=== PATIENT | female | born 1985 | race Caucasian/White ===

== ENCOUNTER 2024-07-13 09:21 | Inpatient (IN) ==
--- NOTE | 2024-07-13 09:46 | Emergency Department Note ---
Impression & Plan Renal colic, Hydronephrosis, Vomiting, Failure of outpatient treatment ED Provider Note NAME: LISA GARCIA AGE: 38 SEX: F : 1985 ARRIVES VIA: Walk-In INFORMANT: [Patient] ED PROVIDER(S): [Zac Blevins MD] CHIEF COMPLAINT: Kidney pain HISTORY OF PRESENT ILLNESS: The patient is a 38-year-old female who was seen about a week ago in this ED and diagnosed with a proximal left 5 mm ureteral stone. She was discharged on pain and nausea medication. She was discharged with Flomax. She has been straining her urine. The patient states that she has had intermittent discomfort but in the last 24 hours, the pain has been worse in the area of the left flank. She also had some vomiting despite her nausea medications and, she had a fever last night. There has been no cough or cold or respiratory complaint. No urinary burning or urgency. In short, she presents back as she is worsening. PMHx/PSHx/Social Hx: See Below PHYSICAL EXAM: GENERAL: Patient is in no acute distress. HEENT: No acute trauma, normocephalic atraumatic, mucous membranes moist, no nasal congestion. NECK: No stridor, no adenopathy, no meningismus, trachea is midline. LUNGS: Clear to auscultation bilaterally, no wheeze, no rhonchi, breath sounds equal. HEART: Without murmurs gallops or rubs, regular rate and rhythm. ABDOMEN: Soft, very mild left abdominal discomfort with palpation. No distention. EXTREMITIES: No cyanosis, full range of motion of all the joints without pain or difficulty. NEUROLOGIC: Oriented x 3, no acute motor or sensory deficits, no focal weakness. SKIN: No jaundice, no diaphoresis. Back: Left flank discomfort to percussion. DIFFERENTIAL DIAGNOSIS: Renal colic, hydronephrosis, UTI, pyelonephritis, renal failure, among others. EMERGENCY DEPARTMENT PROCEDURES: MEDICAL DECISION MAKING: There is no leukocytosis or concerning anemia. There is a normal platelet count. No renal failure or significant electrolyte abnormality. No concerning liver enzyme elevation. No evidence for pancreatitis. testing was negative. Urinalysis shows some findings consistent with the ureteral stone, no hard evidence for infection. KUB shows a potential left ureteral stone consistent with the findings from the previous CT scan. On exam, the patient was not febrile or toxic. Patient was given IV saline, IV Zofran, IV Toradol, she received IV ceftriaxone as antibiotic coverage. The patient has failed outpatient management for her ureteral stone. Despite her medications, she has uncontrolled pain, she is vomiting. She did report a fever in the last 24 hours. I did speak with urology. The patient will be hospitalized for potential urologic intervention. I spoke at length with the patient. The on-call hospitalist was consulted. Case management has been involved. Prior/Outside records/notes reviewed: Previous ED visit note from a week ago describing her presentation, findings and outpatient plan. Imaging/x-ray results per my interpretation: KUB shows a potential left ureteral stone. Chronic Medical/Social conditions affecting care: None Care/Management discussed with: Urology-Dr. Calabrese. Case management and the on-call hospitalist. Level of care consideration(s): After review of the information above and other included data: --I believe the patient requires escalation of care to admission DISPOSITION: Admission Past Med/Surg History Problem List (Updated 07/13/24 @ 15:39 by Zac Blevins MD) Failure of outpatient treatment (Acute) Vomiting (Acute) Hydronephrosis (Acute) Renal colic (Acute) Calculus of proximal left ureter Kidney stone Vomiting (Acute) Hydronephrosis (Acute) Hematuria (Acute) Renal colic (Acute) Acute left flank pain (Acute) Morbid (severe) obesity due to excess calories Healthcare maintenance Hypertension Bariatric surgery status CLAUDIA Bo November 2023 No significant past surgical history No significant medical problems Medical History Diabetes Social History Smoking Status: Never smoker Preferred Language: Frisian Communication Ability: Effective Visual Impairment: No Limitations Hearing Ability: Normal marital status: Current Living Situation: Spouse Feels Safe at Home: Yes Allergies Allergies Allergy/AdvReac Type Severity Reaction Status Date / Time morphine Allergy Mild Unknown Verified 07/13/24 11:26 clindamycin Allergy Unknown HIVES, RASH Unverified 05/22/24 14:35 Macrolide Antibiotics Allergy Unknown ALLERGY: Verified 05/22/24 14:35 "MYCINS" tetracycline Allergy Unknown Unknown Verified 07/13/24 11:26 vancomycin AdvReac Mild FACE & Verified 05/22/24 14:35 SCALP RED & ITCHING Home Meds Home Medications Medication Instructions Recorded Confirmed biotin 1,000 mcg chewable tablet 1,000 mcg PO DAILY 05/22/24 07/13/24 calcium carbonate (Calcium 500) 500 mg PO DAILY 05/22/24 07/13/24 cholecalciferol (vitamin D3) 25 25 mcg PO DAILY 05/22/24 07/13/24 mcg (1,000 unit) capsule lisinopril 10 mg tablet 10 mg PO DAILY 05/22/24 07/13/24 multivitamin (Multiple Vitamins 1 tab PO DAILY 05/22/24 07/13/24 tablet) vitamin A 2,400 mcg capsule 2,400 mcg PO DAILY 05/22/24 07/13/24 Previous Rx's Medication Instructions Recorded ondansetron 4 mg disintegrating 4 - 8 mg (1 - 2 x 4 mg) PO Q6H PRN 07/06/24 tablet nausea and vomiting #14 tabs oxycodone 5 mg tablet 5 mg PO Q6 PRN pain #12 tabs 07/06/24 tamsulosin 0.4 mg capsule (Flomax) 0.4 mg PO DAILY #10 caps 07/06/24 Results & Data (ED) Vital Signs Vital Signs - 24 hr 07/13/24 09:26 07/13/24 11:09 Temperature 36.2 C L Temperature Source Temporal Artery Scan Pulse Rate 70 Pulse Rate [Right Finger] 60 Pulse Rhythm [Right Finger] Regular Pulse Strength [Right Finger] Normal Respiratory Rate 20 16 Respiratory Effort / Characteristics Non-Labored Spontaneous Non-Labored Spontaneous Respiratory Depth Normal Normal Respiratory Pattern Regular Blood Pressure 141/86 H Blood Pressure [Left Arm] 132/68 Blood Pressure Mean 104 Blood Pressure Mean [Left Arm] 89 Blood Pressure Position [Left Arm] Sitting Pulse Oximetry 98 99 Oxygen Delivery Method Room Air Room Air Sepsis Recent Fever Within 48 Hours No Sepsis New/Unexplained Change in Mental Status N/A Sepsis Action Taken by Nursing No Action Required Home Medications Current Medication List: was personally reviewed by me Laboratory Data Attestation: I reviewed the patient's lab results. 07/13/24 09:59 07/13/24 09:59 Lab Results 07/13/24 Range/Units 09:59 WBC 10.00 (4.8-10.8) K/ul RBC 4.75 (4.20-5.40) M/uL Hgb 14.4 (12.0-16.0) g/dl Hct 43.7 (37.0-47.0) % MCV 92.0 (80.0-100.0) fL MCH 30.3 (25.0-34.0) pg MCHC 33.0 (32.0-36.0) g/dL RDW Std Deviation 43.4 (36.4-46.3) fL RDW Coeff of Mindy 12.9 (11.5-14.5) % Plt Count 174 (130-400) K/uL MPV 12.3 (9.4-12.4) fL Immature Gran % (Auto) 0.4 % Neut % (Auto) 76.6 % Lymph % (Auto) 15.6 % Hand % (Auto) 6.8 % Eos % (Auto) 0.2 % Baso % (Auto) 0.4 % Neut # (Auto) 7.66 H (1.40-6.50) K/uL Lymph # (Auto) 1.56 (1.20-3.40) K/uL Hand # (Auto) 0.68 H (0.11-0.59) K/uL Eos # (Auto) 0.02 (0.00-0.50) K/uL Baso # (Auto) 0.04 (0.00-0.20) K/uL Immature Gran # (Auto) 0.04 (0.01-0.20) K/uL Sodium 140 (136-145) mmol/L Potassium 3.6 (3.5-5.1) mmol/L Chloride 105 (98-107) mmol/L Carbon Dioxide 28 (21-32) mmol/L Anion Gap 7 (3-11) BUN 14 (6-23) mg/dl Creatinine 0.86 (0.6-1.2) mg/dl Est Cr Clr Drug Dosing 129.8 ml/min eGFR 89.73 BUN/Creatinine Ratio 16.3 (10-20) Glucose 95 (70-99(Fasting)) mg/dl Calcium 9.4 (8.6-10.3) mg/dl Total Bilirubin 0.6 (0.2-1.0) mg/dl AST 20 (13-39) U/L ALT 19 (7-52) U/L Alkaline Phosphatase 108 H (34-104) U/L Total Protein 7.8 (6.0-8.3) gm/dl Albumin 4.4 (3.4-5.0) gm/dl Globulin 3.4 (2.5-4.0) gm/dl Albumin/Globulin Ratio 1.3 (0.9-2) Lipase 24 (11-82) U/L HCG, Qual Negative (Negative) Urine Color Yellow Urine Appearance Clear (Clear) Urine pH 5.5 (4.5-7.5) Ur Specific Ramah 1.012 (1.000-1.030) Urine Protein 1+ H (Negative) Urine Glucose (UA) Negative (Negative) Urine Ketones Trace H (Negative) Urine Blood 3+ H (Negative) Urine Nitrite Negative (Negative) Urine Bilirubin Negative (Negative) Urine Urobilinogen Negative (Negative) Ur Leukocyte Esterase Trace H (Negative) Urine WBC (Auto) 11-20 H (0-5) /hpf Urine RBC (Auto) >20 H (0-2) /hpf U Hyaline Cast (Auto) 0-2 (0-2) /lpf U Epithel Cells (Auto) 3-5 H (0-2) /hpf Urine Bacteria (Auto) None Seen (None Seen) Administered Medications Sodium Chloride (Nss) 1,000 mls @ 100 mls/hr IV .Q10H STA Stop: 07/13/24 21:38 Last Admin: 07/13/24 14:37 Dose: 100 mls/hr Documented By: [facility] [place]continued Medications Sodium Chloride (Nss) 1,000 mls @ 999 mls/hr IV .Q1H1M STA Stop: 07/13/24 10:29 Last Infusion: 07/13/24 14:40 Dose: Infused Documented By: [facility] [place] Admin: 07/13/24 09:57 Dose: 999 mls/hr Documented By: [facility] [place] Ceftriaxone Sodium (Rocephin) 2,000 mg in 50 mls @ 100 mls/hr IV NOW STA Stop: 07/13/24 11:01 Last Infusion: 07/13/24 11:45 Dose: Infused Documented By: [facility] [place] Admin: 07/13/24 11:13 Dose: 100 mls/hr Documented By: [facility] [place] Ketorolac Tromethamine (Ketorolac Tromethamine 15 Mg/Ml Vial) 10 mg IV NOW STA Stop: 07/13/24 09:30 Last Admin: 07/13/24 09:57 Dose: 10 mg Documented By: [facility] [place] Ondansetron HCl (Ondansetron Inj 2 Mg/Ml 2 Ml Vial) 4 mg IV NOW STA Stop: 07/13/24 09:30 Last Admin: 07/13/24 09:57 Dose: 4 mg Documented By: [facility] [place] Imaging Data Radiologist's Impression: KUB X-Ray 07/13/24 09:30 XR KUB/Abdomen 1 view CLINICAL HISTORY: k stone left TECHNIQUE: 1 view of the abdomen was obtained. Comparison: Comparison is made to CT abdomen pelvis 07/06/2024 FINDINGS: Questionable left ureteral calcific density with previously noted phleboliths. The osseous structures are grossly unremarkable. The bowel gas pattern is nonobstructive. A moderate amount of stool is noted within the large bowel. IMPRESSION: Questionable density in the left proximal ureter which may correspond to previously noted left ureteral stone. Of note, CT renal stone protocol is a more sensitive study. ACT 112: Negative or not required by law. Electronically signed by: Aaron Malik M.D. 07/13/2024 10:14 AM Discharge Plan Visit Data Chief Complaint: Kidney Stone Stated Complaint: KIDNEY STONE, NAUSEA/VOMITING, FEVER ED Provider: Zac Blevins Discharge Problem: Renal colic, Hydronephrosis, Vomiting, Failure of outpatient treatment Patient Disposition: Admitted As Inpatient Condition: Fair Discharge Instructions Interventions: ED Discharge Assessment Last Done: 07/13/24 14:04 Discharge Problem: Hydronephrosis Qualifiers: Hydronephrosis type: with renal calculous obstruction Qualified Code(s): N13.2 - Hydronephrosis with renal and ureteral calculous obstruction Vomiting Qualifiers: Vomiting type: unspecified Nausea presence: with nausea Qualified Code(s): R 11.2 - Nausea with vomiting, unspecified
[2024-07-13] MEDS: ONDANSETRON INJ 2 MG/ML 2 ML VIAL IV STA (09:57)
[2024-07-13] MEDS: SODIUM CHLORIDE 0.9% 1,000 ML IV STA ×2 (09:57→14:37)
[2024-07-13] MEDS: KETOROLAC TROMETHAMINE 15 MG/ML VIAL IV STA (09:57)
--- NOTE | 2024-07-13 10:16 | XRay Report ---
XR KUB/Abdomen 1 view CLINICAL HISTORY: k stone left TECHNIQUE: 1 view of the abdomen was obtained. Comparison: Comparison is made to CT abdomen pelvis 07/06/2024 FINDINGS: Questionable left ureteral calcific density with previously noted phleboliths. The osseous structures are grossly unremarkable. The bowel gas pattern is nonobstructive. A moderate amount of stool is not ed within the large bowel. IMPRESSION: Questionable density in the left proximal ureter which may correspond to previously noted left ureter al stone. Of note, CT renal stone protocol is a more sensitive study. ACT 112: Negative or not required by law. Electronically signed by: Aaron Malik M.D. 07/13/2024 10:14 AM
[2024-07-13 10:18] LABS: Basophils # (auto) 0.04 K/uL (0.00-0.20); Basophils % (auto) 0.4 %; Eosinophils # (auto) 0.02 K/uL (0.00-0.50); Eosinophils % (auto) 0.2 %; Hematocrit (blood only) 43.7 % (37.0-47.0); Hemoglobin 14.4 g/dl (12.0-16.0); Immature Granulocytes # (auto) 0.04 K/uL (0.01-0.20); Immature Granulocytes % (auto) 0.4 %; Lymphocytes # (auto) 1.56 K/uL (1.20-3.40); Lymphocytes % (auto) 15.6 %; Mean Corpuscular Hemoglobin 30.3 pg (25.0-34.0); Mean Platelet Volume 12.3 fL (9.4-12.4); Monocytes # (auto) 0.68 K/uL (0.11-0.59); Monocytes % (auto) 6.8 %; Neutrophils # (auto) 7.66 K/uL (1.40-6.50); Neutrophils % (auto) 76.6 %; Platelet Count 174 K/uL (130-400); RDW Coefficient of Variation 12.9 % (11.5-14.5); RDW Standard Deviation 43.4 fL (36.4-46.3); Red Blood Count 4.75 M/uL (4.20-5.40)
[2024-07-13 10:19] LABS: Appearance Urine Clear (Clear); Bacteria Urine Automated None Seen (None Seen); Bilirubin Urine Negative (Negative); Blood Urine 3+ (Negative); Cast Urine Automated 0-2 /lpf (0-2); Color Urine Yellow; Glucose Urine UA Negative (Negative); Ketones Urine Trace (Negative); Leukocyte Esterase Urine Trace (Negative); Nitrite Urine Negative (Negative); Protein Urine 1+ (Negative); RBC Urine Automated >20 /hpf (0-2); Specific Gravity Urine 1.012 (1.000-1.030); Urobilinogen Urine Negative (Negative); pH Urine 5.5 (4.5-7.5)
[2024-07-13 10:29] LABS: Pregnancy Test, Serum Negative (Negative)
[2024-07-13 10:33] LABS: Albumin Globulin Ratio 1.3 (0.9-2); Albumin Level 4.4 gm/dl (3.4-5.0); BUN Creatinine Ratio 16.3 (10-20); Bilirubin,Total 0.6 mg/dl (0.2-1.0); Calcium 9.4 mg/dl (8.6-10.3); Creatinine Clr Calc Pharmacy 129.8 ml/min; Globulin 3.4 gm/dl (2.5-4.0); Potassium 3.6 mmol/L (3.5-5.1); Total Protein 7.8 gm/dl (6.0-8.3)
[2024-07-13] MEDS: cefTRIAXone SODIUM 2,000 MG/50 ML BAG IV STA (11:13)
[2024-07-13] MEDS ORDERED: SODIUM CHLORIDE 0.9% INJ 100 ML BAG IV SCH (11:30)
--- NOTE | 2024-07-13 11:33 | History & Physical Report ---
Date of Service July 13, 2024 Assessment & Plan (1) Kidney stone: Plan: failed conservative outpatient treatment CTAP 07/06 showing 5 mm stone within the proximal left ureter, mild hydronephrosis KUB XR 07/13 showing questionable density in left proximal ureter UA noninfectious, trace ketones, > 20 RBC, 3-5 epithelial cells, no bacteria noninfectious - VSS, afebrile, no leukocytosis urology consulted planning for stent placement 07/13 N.p.o. continue flomax 2G Rocephin given in ED, UA does not look infectious and no pyelonephritis, defer continued ABX treatment Renal function stable, trend BMP Zofran and oxycodone Prn (2) Hypertension: Plan: stable Patient does not take lisinopril anymore; only takes as needed occasionally hold lisinopril Plan Patient is a 38-year-old female s/p bypass surgery and history of hypertension not on current medical management. She was admitted for nephrolithiasis that failed outpatient conservative treatment; planning for stent placement by urology 07/13. VTE ppx: SCDs and ambulation Diet: NPO; regular post operatively Dispo: med surg Admission and Anticipated Discharge Date Admission Date: 07/13/23 History of Present Illness Chief Complaint: kidney stone Primary Care Provider: Mary Larios MD Patient is a 38-year-old female with past medical history of bypass surgery, DM, hypertension. She stated she no longer takes anything for diabetes as it has gone away after her surgery. She also stopped taking lisinopril because her blood pressure has been stable. She just takes lisinopril as needed if her blood pressure is high. she was in the ER about a week ago found to have a 5 mm left ureteral stone; she was sent home with pain medication and Flomax. She presents today after worsening flank pain, vomiting x 2, and fever that started last night. She also had intermittent dizziness, lightheadedness, and a headache last night that have all resolved. She states the pain is on her left flank, side, and abdomen. She has been urinating without difficulty, denies hematuria. Patient denies dyspnea, dyspnea on exertion, chest pain, dysuria, decreased urine output. Handoff from ER provider stated that urology to evaluate patient later today with possible stent placement in OR today. Patient's mother and sister updated at bedside. Allergies Allergy/AdvReac Type Severity Reaction Status Date / Time morphine Allergy Mild Unknown Verified 07/13/24 11:26 clindamycin Allergy Unknown HIVES, RASH Unverified 05/22/24 14:35 Macrolide Antibiotics Allergy Unknown ALLERGY: Verified 05/22/24 14:35 "MYCINS" tetracycline Allergy Unknown Unknown Verified 07/13/24 11:26 vancomycin AdvReac Mild FACE & Verified 05/22/24 14:35 SCALP RED & ITCHING Home Medications Medication Instructions Recorded Confirmed Type biotin 1,000 mcg chewable tablet 1,000 mcg PO DAILY 05/22/24 07/13/24 History calcium carbonate (Calcium 500) 500 mg PO DAILY 05/22/24 07/13/24 History cholecalciferol (vitamin D3) 25 25 mcg PO DAILY 05/22/24 07/13/24 History mcg (1,000 unit) capsule lisinopril 10 mg tablet 10 mg PO DAILY 05/22/24 07/13/24 History multivitamin (Multiple Vitamins 1 tab PO DAILY 05/22/24 07/13/24 History tablet) vitamin A 2,400 mcg capsule 2,400 mcg PO DAILY 05/22/24 07/13/24 History ondansetron 4 mg disintegrating 4 - 8 mg (1 - 2 x 4 mg) PO Q6H PRN 07/06/24 07/13/24 Rx tablet nausea and vomiting #14 tabs oxycodone 5 mg tablet 5 mg PO Q6 PRN pain #12 tabs 07/06/24 07/13/24 Rx tamsulosin 0.4 mg capsule (Flomax) 0.4 mg PO DAILY #10 caps 07/06/24 07/13/24 Rx Past Med/Surg History Problem List (Updated 07/13/24 @ 11:26 by Magdalena Hoang PA-C) Kidney stone Vomiting (Acute) Hydronephrosis (Acute) Hematuria (Acute) Renal colic (Acute) Acute left flank pain (Acute) Morbid (severe) obesity due to excess calories Healthcare maintenance Hypertension Bariatric surgery status CLAUDIA Betzy November 2023 No significant past surgical history No significant medical problems Medical History Diabetes Social History Smoking Status: Never smoker Preferred Language: Latvian Communication Ability: Effective Visual Impairment: No Limitations Hearing Ability: Normal marital status: Current Living Situation: Spouse Feels Safe at Home: Yes Review of Systems Review of Systems: see HPI Physical Exam Physical Exam: The patient is awake, alert and oriented 3, well developed and well nourished, normocephalic and atraumatic, in no acute distress. Non-toxic appearing. HEENT- EOMI, mucous membranes moist. Hearing grossly intact. Heart-normal S1 and S2. No murmurs, rubs or gallops. Lungs-clear bilaterally, no respiratory distress, no accessory muscle use. Abdomen-normal bowel sounds and soft. No ascites noted. Mild tenderness LUQ and LLQ. Extremities- no clubbing, cyanosis, or edema. Rheumatologic-normal range of motion. Psychiatric-normal affect. Results & Data Results & Data Vital Signs (Past 12 Hours) Vital Signs Temp Pulse Pulse Resp BP BP Pulse Ox 07/13/24 11:09 60 16 132/68 99 07/13/24 09:26 36.2 C L 70 20 141/86 H 98 O2 Del Method 07/13/24 11:09 Room Air 07/13/24 09:26 Room Air Laboratory Results Reviewed CBC, CMP, UA Diagnostic Findings reviewed KUB Medications Administered ED: 1L NSS, Rocephin, Zofran, Toradol ECG Additional Comments: ordered Code Status & VTE Plan Code Status full VTE Prophylaxis Plan VTE Prophylaxis will be ordered: Yes Supervising Physician Co-Signing Physician Notes I have personally seen, evaluated and examined the patient. I have also personally discussed the management of the patient with the resident physician/FRANCISCA and I agree with the exam findings documented in the history and physical examination and the documented assessment and plan unless otherwise stated below. Brief Exam: In general very pleasant 38-year-old female is alert and oriented x 3 at the time of exam she is accompanied by her sister and her mother at the time my exam whom she grants permission to be in the room during my interview and examination. At this point she is asymptomatic. But has had ongoing flank pain and nausea and vomiting for the last week with failed outpatient attempts at passing this kidney stone. HEENT: Normocephalic atraumatic. Heart: Regular rate rhythm. Lungs: Clear. Abdomen: Soft nontender positive bowel sounds. No perspiring antibody. Extremities: Intact without edema. Neurologically alert and oriented x 3 with no focal deficit. Assessment/plan: As described above. N.p.o. IV fluids for an additional liter. Anticipate going to the OR today for stent and stone extraction etc. Urology consulted. Please refer to orders for further planning PG Care Time/CCT Total # of Minutes Spent Total Time Spent with Patient: Total time spent is greater than 50% in coordination of care (as documented) at patient's floor/unit and/or counseling patient: Coding Level of Care Code 91282 INT INP/OBS CARE 3/75MIN Diagnoses Kidney stone N20.0 Hypertension I10
[2024-07-13] MEDS ORDERED: ONDANSETRON 4 MG OD TAB PO PRN (14:04)
--- NOTE | 2024-07-13 14:22 | Electrocardiogram Report ---
Test Reason : Blood Pressure : */* mmHG Vent. Rate : 55 BPM Atrial Rate : 55 BPM P-R Int : 190 ms QRS Dur : 92 ms QT Int : 448 ms P-R-T Axes : 38 22 14 degrees QTcB Int : 428 ms Sinus bradycardia Low voltage QRS Poor R wave progression, consider anterior ME vs. lead placement vs. LVH Abnormal ECG No previous ECGs available Confirmed by Teto Milian ([id number]) on 07/13/2024 2:21:59 PM Referred By: REFERRED SELF Confirmed By: Teto Milian
--- NOTE | 2024-07-13 14:56 | Communication Note ---
Date of Service: July 13, 2024 Discussed with on-call urologist FRANCISCA, patient is opting for conservative management overnight and to reassess for surgery tomorrow. Will change diet to regular and n.p.o. after midnight.
--- NOTE | 2024-07-13 15:12 | Urology Consultation ---
Date of Consultation July 13, 2024 Assessment & Plan (1) Renal colic: (2) Calculus of proximal left ureter: (3) Hydronephrosis: 38-year-old female admitted for worsening left renal colic, nausea and vomiting secondary to an obstructing 5 mm proximal left ureteral stone. Patient is afebrile and hemodynamically stable Labs reviewedcreatinine 0.86, WBC 10.0 Urinalysis was not suggestive of infection Urine culture is pending She was treated with empiric antibiotics in the emergency department KUB showed left proximal ureteral stone present We reviewed and discussed options for stone management including trial of passage with medical expulsive therapy versus surgical intervention Discussed surgical intervention with cystoscopy and left ureteral stent placement while inpatient or outpatient surgical options Ureteral stents were discussed in detail For now, she would like to monitor and reassess tomorrow for surgical intervention inpatient versus outpatient Continue supportive care and pain management per hospital medicine service Okay for diet today, make n.p.o. at midnight to reassess will follow, please contact our service with any additional questions or changes in clinical status History of Present Illness Reason for Consultation: Ureteral stone Requesting Physician: Dr. Humphreys Attending Physician: Delroy Humphreys, PhD, DO History of Present Illness This is a 38-year-old female who was previously seen in the emergency department on 07/06/2024 for evaluation of left abdominal/flank pain, nausea and vomiting. CTAP demonstrated an obstructing 5 mm proximal left ureteral stone with hydronephrosis. She was discharged to home with oxycodone, ondansetron and tamsulosin for outpatient management. She presented to the ED today due to worsening left flank pain and vomiting despite home medications. On arrival to ED, she was afebrile and hemodynamically stable. Lab work showed WBC 10.0, hemoglobin 14.4, creatinine 0.86. Urinalysis showed 3+ blood, trace LE, >20 RBC and negative for bacteria. KUB showed a calcification in the left proximal ureter which may correspond to previously noted left ureteral stone on CT. ED course: IV fluids, ondansetron, ketorolac and IV ceftriaxone. She was admitted to the hospital medicine service for left ureteral stone and failed outpatient management. Patient seen and examined in the emergency department. Family at bedside. Left flank pain has improved since arrival. No nausea or vomiting at present. She is voiding without difficulty. No hematuria or dysuria. She reports subjective fever/sweats last night. No fever or chills at present. No prior stone history. Allergies Allergy/AdvReac Type Severity Reaction Status Date / Time morphine Allergy Mild Unknown Verified 07/13/24 11:26 clindamycin Allergy Unknown HIVES, RASH Unverified 05/22/24 14:35 Macrolide Antibiotics Allergy Unknown ALLERGY: Verified 05/22/24 14:35 "MYCINS" tetracycline Allergy Unknown Unknown Verified 07/13/24 11:26 vancomycin AdvReac Mild FACE & Verified 05/22/24 14:35 SCALP RED & ITCHING Home Medications Medication Instructions Recorded Confirmed Type biotin 1,000 mcg chewable tablet 1,000 mcg PO DAILY 05/22/24 07/13/24 History calcium carbonate (Calcium 500) 500 mg PO DAILY 05/22/24 07/13/24 History cholecalciferol (vitamin D3) 25 25 mcg PO DAILY 05/22/24 07/13/24 History mcg (1,000 unit) capsule lisinopril 10 mg tablet 10 mg PO DAILY 05/22/24 07/13/24 History multivitamin (Multiple Vitamins 1 tab PO DAILY 05/22/24 07/13/24 History tablet) vitamin A 2,400 mcg capsule 2,400 mcg PO DAILY 05/22/24 07/13/24 History ondansetron 4 mg disintegrating 4 - 8 mg (1 - 2 x 4 mg) PO Q6H PRN 07/06/24 07/13/24 Rx tablet nausea and vomiting #14 tabs oxycodone 5 mg tablet 5 mg PO Q6 PRN pain #12 tabs 07/06/24 07/13/24 Rx tamsulosin 0.4 mg capsule (Flomax) 0.4 mg PO DAILY #10 caps 07/06/24 07/13/24 Rx Patient History Medical History Diabetes Social History Smoking Status: Never smoker Preferred Language: Wolof Communication Ability: Effective Visual Impairment: No Limitations Hearing Ability: Normal marital status: Current Living Situation: Spouse Feels Safe at Home: Yes Review of Systems Review of Systems: All systems reviewed & are unremarkable except as noted in HPI & below Physical Exam Constitutional: well developed and well nourished; no acute distress Respiratory: normal respiratory effort; no respiratory distress and no labored breathing Gastrointestinal (Abdomen): Inspection/Auscultation: abdomen normal to inspection Musculoskeletal: Head/Neck/Chest: normocephalic Neurologic: moves all extremities and awake Psychiatric: Orientation: alert and oriented x 3 Results & Data Vital Signs (Past 12 Hours) Vital Signs Temp Pulse Pulse Resp BP BP Pulse Ox 07/13/24 14:00 64 16 158/95 H 100 07/13/24 13:45 65 14 136/83 100 07/13/24 13:00 55 L 12 147/83 H 98 07/13/24 12:47 56 L 07/13/24 11:09 60 16 132/68 99 07/13/24 09:26 36.2 C L 70 20 141/86 H 98 O2 Del Method 07/13/24 14:00 Room Air 07/13/24 13:45 Room Air 07/13/24 13:00 Room Air 07/13/24 12:47 07/13/24 11:09 Room Air 07/13/24 09:26 Room Air PG Care Time/CCT Total # of Minutes Spent Total Time Spent with Patient: Total time spent is greater than 50% in coordination of care (as documented) at patient's floor/unit and/or counseling patient: Coding Level of Care Code 98933 IN/OBS CONSULT LVL 4,60M Diagnoses Renal colic N23 Calculus of proximal left ureter N20.1 Hydronephrosis N13.2 Hydronephrosis type: with renal calculous obstruction (3) Hydronephrosis Hydronephrosis type: with renal calculous obstruction Qualified Code(s): N13.2 - Hydronephrosis with renal and ureteral calculous obstruction
[2024-07-13] MEDS: oxyCODONE HCL IR 5 MG TAB (IMMEDIATE RELEASE) PO PRN (23:17)
[2024-07-14 08:30] LABS: Basophils # (auto) 0.05 K/uL (0.00-0.20); Basophils % (auto) 0.8 %; Eosinophils # (auto) 0.16 K/uL (0.00-0.50); Eosinophils % (auto) 2.6 %; Hematocrit (blood only) 35.8 % (37.0-47.0); Immature Granulocytes # (auto) 0.01 K/uL (0.01-0.20); Immature Granulocytes % (auto) 0.2 %; Lymphocytes # (auto) 2.66 K/uL (1.20-3.40); Lymphocytes % (auto) 43.3 %; Mean Corpuscular Hemoglobin 31.3 pg (25.0-34.0); Mean Corpuscular Hgb Conc 33.5 g/dL (32.0-36.0); Mean Corpuscular Volume 93.2 fL (80.0-100.0); Mean Platelet Volume 12.3 fL (9.4-12.4); Monocytes # (auto) 0.48 K/uL (0.11-0.59); Monocytes % (auto) 7.8 %; Neutrophils # (auto) 2.79 K/uL (1.40-6.50); Neutrophils % (auto) 45.3 %; Platelet Count 138 K/uL (130-400); RDW Standard Deviation 44.6 fL (36.4-46.3); Red Blood Count 3.84 M/uL (4.20-5.40); White Blood Count 6.15 K/ul (4.8-10.8)
--- NOTE | 2024-07-14 08:59 | Urology Progress Note ---
Date of Service July 14, 2024 Assessment & Plan (1) Calculus of proximal left ureter: (2) Hydronephrosis: (3) Renal colic: (4) Failure of outpatient treatment: Plan: 38-year-old female admitted for left renal colic secondary to an obstructing left proximal ureteral stone, failed outpatient management. Patient afebrile and hemodynamically stable Labs today reviewedno leukocytosis, creatinine still pending Urine culture showed mixed organisms, no specific bacteria identified Reviewed options for management including trial of passage versus surgical intervention She would like to proceed with surgical intervention today Proceed to OR for cystoscopy, left ureteroscopy, laser lithotripsy and left stent placement Risk and benefits of procedure to be reviewed with patient by Dr. Heath Rome n.p.o. for procedure Will cover with IV Cipro preoperatively Continue supportive care and pain management per hospital service Patient can likely be discharged after procedure today presuming she is medically stable Admission and Anticipated Discharge Date Admission Date: July 13, 2024 Subjective Patient seen and examined at bedside this morning. No acute issues overnight. She reports taking pain medication prior to midnight. Currently has mild left flank discomfort. Voiding spontaneously. No fever or chills. Review of Systems Constitutional: as per Subjective / HPI Genitourinary: as per Subjective / HPI Physical Exam Constitutional: no acute distress Respiratory: normal respiratory effort; no respiratory distress and no labored breathing Gastrointestinal (Abdomen): Inspection/Auscultation: abdomen normal to inspection Musculoskeletal: Head/Neck/Chest: normocephalic Neurologic: moves all extremities and awake Psychiatric: Orientation: alert and oriented x 3 Results & Data Vital Signs (Past 12 Hours) Vital Signs Temp Pulse Resp BP Pulse Ox O2 Del Method 07/14/24 08:08 36.6 C 59 L 16 123/76 98 Room Air PG Care Time/CCT Total # of Minutes Spent Total Time Spent with Patient: Total time spent is greater than 50% in coordination of care (as documented) at patient's floor/unit and/or counseling patient: Coding Level of Care Code 60832 SUB INP/OBS CARE 2/35MIN Diagnoses Calculus of proximal left ureter N20.1 Hydronephrosis N13.2 Hydronephrosis type: with renal calculous obstruction Renal colic N23 Failure of outpatient treatment Z78.9 (2) Hydronephrosis Hydronephrosis type: with renal calculous obstruction Qualified Code(s): N13.2 - Hydronephrosis with renal and ureteral calculous obstruction
[2024-07-14] MEDS ORDERED: NON-FORMULARY MEDICATION (Biotin 1,000 mcg tablet,chewable) PO SCH (09:00)
[2024-07-14 09:11] LABS: Albumin Globulin Ratio 1.4 (0.9-2); Albumin Level 3.4 gm/dl (3.4-5.0); BUN Creatinine Ratio 22.8 (10-20); Bilirubin,Total 0.3 mg/dl (0.2-1.0); Calcium 8.4 mg/dl (8.6-10.3); Creatinine Clr Calc Pharmacy 197.3 ml/min; Globulin 2.5 gm/dl (2.5-4.0); Potassium 3.3 mmol/L (3.5-5.1); Total Protein 5.9 gm/dl (6.0-8.3)
[2024-07-14] MEDS: CHOLECALCIFEROL 25 MCG (1000 UNITS) TAB PO SCH (09:18)
[2024-07-14] MEDS: TAMSULOSIN HCL 0.4 MG CAP PO SCH (09:18)
[2024-07-14] MEDS: CALCIUM CARBONATE 1250MG TAB PO SCH (09:18)
[2024-07-14] MEDS ORDERED: fentaNYL citrate PF 100 MCG/2 ML VIAL IV PRN (10:18)
[2024-07-14] MEDS ORDERED: HYDROmorphone INJ 1 MG/ML SYRINGE IV PRN (10:18)
[2024-07-14] MEDS ORDERED: ePHEDrine sulfate 50 MG/ML AMP IV PRN (10:18)
[2024-07-14] MEDS ORDERED: ONDANSETRON INJ 2 MG/ML 2 ML VIAL IV PRN (10:18)
[2024-07-14] MEDS ORDERED: ATROPINE SULFATE 0.1 MG/ML 10ML SYR IV PRN (10:18)
--- NOTE | 2024-07-14 10:19 | Anesthesiology Consultation ---
Date of Service July 14, 2024 Assessment & Plan Chart Review Chart Review: Acceptable Risk for Surgery Consults Requested none ASA ASA2 Proposed Anesthesia Anesthesia Type: MAC (Possible GA) History Surgery Operation Date: 07/14/24 10:50 Proposed Procedures p Cystoscopy Left Ureteroscopy Laser Lithotripsy and Stent Placement - Triston Joe MD Height/Weight Height: 5 ft 10 in Weight: 126.3 kg Allergies Allergy/AdvReac Type Severity Reaction Status Date / Time morphine Allergy Mild Unknown Verified 07/13/24 11:26 clindamycin Allergy Unknown HIVES, RASH Unverified 05/22/24 14:35 Macrolide Antibiotics Allergy Unknown ALLERGY: Verified 05/22/24 14:35 "MYCINS" tetracycline Allergy Unknown Unknown Verified 07/13/24 11:26 vancomycin AdvReac Mild FACE & Verified 05/22/24 14:35 SCALP RED & ITCHING Medications Home Medications Medication Instructions Recorded Confirmed Last Taken biotin 1,000 mcg chewable tablet 1,000 mcg PO DAILY 05/22/24 07/13/24 07/12/24 calcium carbonate (Calcium 500) 500 mg PO DAILY 05/22/24 07/13/24 07/12/24 cholecalciferol (vitamin D3) 25 25 mcg PO DAILY 05/22/24 07/13/24 07/12/24 mcg (1,000 unit) capsule lisinopril 10 mg tablet 10 mg PO DAILY 05/22/24 07/13/24 07/11/24 multivitamin (Multiple Vitamins 1 tab PO DAILY 05/22/24 07/13/24 07/12/24 tablet) vitamin A 2,400 mcg capsule 2,400 mcg PO DAILY 05/22/24 07/13/24 07/12/24 ondansetron 4 mg disintegrating 4 - 8 mg (1 - 2 x 4 mg) PO Q6H PRN 07/06/24 07/13/24 07/13/24 tablet nausea and vomiting #14 tabs oxycodone 5 mg tablet 5 mg PO Q6 PRN pain #12 tabs 07/06/24 07/13/24 07/13/24 tamsulosin 0.4 mg capsule (Flomax) 0.4 mg PO DAILY #10 caps 07/06/24 07/13/24 07/12/24 Active Medications Generic Name Dose Route Start Last Admin Trade Name Freq PRN Reason Stop Dose Admin Calcium Carbonate 1 tab 07/14/24 09:00 07/14/24 09:18 Calcium Carbonate 1250mg Tab PO 08/13/24 08:59 Not Given DAILY DEZ Oxycodone HCl 5 mg 07/13/24 14:04 07/14/24 09:59 Oxycodone Hcl Ir 5 Mg Tab (Immediate Release) PO 07/27/24 14:03 5 mg Q6 PRN Administration pain Tamsulosin HCl 0.4 mg 07/14/24 09:00 07/14/24 09:18 Tamsulosin Hcl 0.4 Mg Cap PO 08/13/24 08:59 Not Given DAILY DEZ Vitamin D 25 mcg 07/14/24 09:00 07/14/24 09:18 Cholecalciferol 25 Mcg (1000 Units) Tab PO 08/13/24 08:59 Not Given DAILY DEZ NPO Last Intake of Solids Comment: NPO past MN Past Medical History Medical History Diabetes Exercise / Class Metabolic Activity II 4-5 Yardwork/Stairs/Walk up hill Past Anesthesia History No Hx of Anesthesia Complications and No Family Hx of Anesthesia Complications History of PONV No Hx of PONV and No Hx of Motion Sickness Social History Smoking Status: Never smoker Do You Dip or Chew Tobacco: No Hx Alcohol Use: No Hx Substance Use: No Review of Systems ROS Unobtainable: All systems reviewed & are unremarkable except as noted in HPI & below Physical Exam Vital Signs Last Vital Signs Temp 36.8 C 07/14/24 10:16 Pulse 60 07/14/24 10:16 Resp 18 07/14/24 10:16 BP 148/90 H 07/14/24 10:16 Pulse Ox 99 07/14/24 10:16 O2 Del Method Room Air 07/14/24 10:16 Constitutional + morbidly obese; no acute distress ENMT Mouth: no TMJ abnormality and no dentition abnormality Thyromental Distance: > or= 3.5 Finger Breadths Mallampati Class: I Neck normal visual inspection Respiratory normal respiratory effort Auscultation: lungs clear to auscultation bilaterally Cardiovascular Rate/Rhythm: regular rate Psychiatric Orientation: alert and oriented x 3 Testing Laboratory Results 07/14/24 08:05 07/14/24 08:05 Urine Color Yellow 07/13/24 09:59 Urine Appearance Clear (Clear) 07/13/24 09:59 Urine pH 5.5 (4.5-7.5) 07/13/24 09:59 Ur Specific [place] 1.012 (1.000-1.030) 07/13/24 09:59 Urine Protein 1+ (Negative) H 07/13/24 09:59 Urine Glucose (UA) Negative (Negative) 07/13/24 09:59 Urine Ketones Trace (Negative) H 07/13/24 09:59 Urine Nitrite Negative (Negative) 07/13/24 09:59 Ur Leukocyte Esterase Trace (Negative) H 07/13/24 09:59 Urine WBC (Auto) 11-20 /hpf (0-5) H 07/13/24 09:59 Urine RBC (Auto) >20 /hpf (0-2) H 07/13/24 09:59 U Hyaline Cast (Auto) 0-2 /lpf (0-2) 07/13/24 09:59 U Epithel Cells (Auto) 3-5 /hpf (0-2) H 07/13/24 09:59 Urine Bacteria (Auto) None Seen (None Seen) 07/13/24 09:59 07/13/24 09:59 Urine Culture - Final Urine,Clean Catch More than three types of organisms present, all high counts. Repeat collection recommended. No further identifications or sensitivities to follow. Electrocardiogram Findings: + SB @
[2024-07-14] MEDS ORDERED: ONDANSETRON INJ 2 MG/ML 2 ML VIAL ONE (10:43)
[2024-07-14] MEDS ORDERED: LIDOCAINE 2% 2 ML VIAL/AMP(20MG/ML) INFIL ONE (10:43)
[2024-07-14] MEDS ORDERED: MIDAZOLAM HCL 1 MG/ML 2ML VIAL ONE (10:43)
[2024-07-14] MEDS ORDERED: fentaNYL citrate PF 100 MCG/2 ML VIAL ONE (10:43)
[2024-07-14] MEDS ORDERED: DEXAMETHASONE SOD INJ 4 MG/ML VIAL ONE (10:43)
[2024-07-14] MEDS ORDERED: PROPOFOL IV EMULSION 10 MG/ML 20 ML VIAL IV ONE (10:43)
[2024-07-14] MEDS: CIPROFLOXACIN / D5W 400 MG/200 ML BAG IV SCH (10:52)
--- NOTE | 2024-07-14 11:44 | Operative Report ---
[facility] Post Operative Report Pre & Post Diagnosis Operation Date: 07/14/24 10:50 Pre-Op Diagnosis: Kidney stone. Post-Op Diagnosis: Kidney stone. I identified the patient and participated in the time-out.: Yes Procedure Operation Date: 07/14/24 10:50 Actual Procedures p Cystoscopy, Left Ureteroscopy, Stone Extraction, Laser Lithotripsy and Left Stent Placement(Left) - Triston Joe MD Surgeon Triston Joe MD Iuss Analyst none Estimated Blood Loss 0 Findings Consistent with Post-Op Diagnosis Specimens Stone for chemical analysis Description of Procedure The patient was identified in the preoperative holding area, appropriate informed consents were reviewed and completed and the patient was transferred to the operative suite. Upon arrival, appropriate antibiotics and anesthesia were administered and the patient was placed in dorsal lithotomy position and prepped and draped in sterile fashion. Begin the case I passed 21 Chadian cystoscope with 30 degree lens. Bladder was mildly inflamed and I washed it out first. I then inspected and noted some squamous metaplasia across the trigone but otherwise no mucosal abnormalities. Ureteral orifices were in orthotopic position. Return my attention the left UO and cannulated with a sensor wire. This wire advanced the kidney without difficulty. He is 10 Chadian double-lumen catheter to advance a second wire. I did meet resistance in the distal ureter with a 10 Chadian double-lumen. I could not see a stone in that location on fluoroscopy but I presume that was the location of the stone. In turn I extracted the 10 Chadian double-lumen and reentered the ureter with a semirigid ureteroscope. This confirmed that it was the stone causing obstruction and it was moderately impacted into the ureteral wall. I used a 200 m laser fiber to fragmented into several pieces before using a basket to extract all of the fragments. I performed repeat ureteroscopy on several occasions to confirm that no fragments were left behind. I then irrigated some of the stone fragments out passed off the table for chemical analysis. I placed a 6 Chadian by 24 cm double-J stent with good curl in the kidney as well as the bladder. A string was taped to her inner left thigh and she was reversed of anesthesia. The plan will be for her to have an in office stent removal with the nursing staff on Wednesday. I attest to the content of the Intraoperative Record and any orders documented therein. Any exceptions are noted below.
--- NOTE | 2024-07-14 12:07 | Anesthesiology Progress Note ---
Date of Service July 14, 2024 Anesthesia Post Procedure Vital Signs Vital Signs: Temp Pulse Pulse Pulse Resp BP BP 07/14/24 11:55 59 L 14 126/72 07/14/24 11:45 52 L 12 125/80 07/14/24 11:38 36.0 C L 70 12 146/83 H 07/14/24 10:16 36.8 C 60 18 148/90 H 07/14/24 08:08 36.6 C 59 L 16 123/76 07/13/24 20:04 36.4 C L 65 12 151/93 H 07/13/24 16:41 36.6 C 63 18 136/89 07/13/24 14:33 60 15 169/96 H 07/13/24 14:15 60 18 07/13/24 14:00 64 16 158/95 H 07/13/24 13:45 65 14 136/83 07/13/24 13:00 55 L 12 147/83 H 07/13/24 12:47 56 L Pulse Ox O2 Del Method O2 Flow Rate 07/14/24 11:55 99 Room Air 0 07/14/24 11:45 99 Oxymask 4 07/14/24 11:38 99 Oxymask 8 07/14/24 10:16 99 Room Air 07/14/24 08:08 98 Room Air 07/13/24 20:04 96 Room Air 07/13/24 16:41 97 Room Air 07/13/24 14:33 100 07/13/24 14:15 100 07/13/24 14:00 100 Room Air 07/13/24 13:45 100 Room Air 07/13/24 13:00 98 Room Air 07/13/24 12:47 Pain Intensity Lower Flank: Pain Intensity: 1 Transfer of Care Handoff Completed per policy Notes Mental Status: alert / awake / arousable Patient Amnestic to Procedure: Yes Nausea / Vomiting: adequately controlled Pain: adequately controlled Airway Patency, RR, SpO2: stable & adequate BP & HR: stable & adequate Hydration State: stable & adequate Anesthetic Complications: no major complications apparent and Pt Satisfied with anesthetic care
[2024-07-14 12:26] VITALS: RESP 14
[2024-07-14 13:00] VITALS: TEMP 98.2; O2SAT 96
[2024-07-14] MEDS: POTASSIUM CHLORIDE CRTAB 20 MEQ TABCR PO STA (13:10)
[2024-07-14 13:18] VITALS: BP 142/86; PULSE 58
--- NOTE | 2024-07-14 13:21 | Fluoroscopy Report ---
FL retrograde includes kub CLINICAL HISTORY: LT CYSTO/STENT TECHNIQUE: 1 views were obtained with the C-arm in the OR with the above procedure. Total fluoroscopy time was 10.5 seconds. Radiation dose was 3.1 mGy. Comparison: Comparison is made to CT abdomen pelvis 07/06/2024 FINDINGS/IMPRESSION: Intraoperative images were obtained of left laser lithotripsy and stent placemen t. In the final images, the stent is in satisfactory position. Please correlate with intraoperative fluoroscopy and operative report. ACT 112: Negative or not required by law. Electronically signed by: Aaron Malik M.D. 07/14/2024 1:20 PM
--- NOTE | 2024-07-14 19:32 | Discharge Summary ---
Discharge Summary Date of Service July 14, 2024 Principal Dx & Hospital Course #1 = Principal Diagnosis (1) Kidney stone: failed conservative outpatient treatment CTAP 07/06 showing 5 mm stone within the proximal left ureter, mild hydronephrosis KUB XR 07/13 showing questionable density in left proximal ureter UA noninfectious, trace ketones, > 20 RBC, 3-5 epithelial cells, no bacteria Urology consulted: S/p cystoscopy, left ureteroscopy, stone extraction, laser lithotripsy and left stent placement with Dr. Joe on 07/14/2024 Tolerated procedure well Discharged with Cipro x 3 days Follow-up with urology outpatient. Appointment scheduled for 07/17/2024 Follow-up with PCP in 1-2 weeks (2) Hypertension: stable Patient does not take lisinopril anymore; only takes as needed occasionally Plan CODE STATUS: Full code Dispo: Discharged home 07/14/2024 Notes For Next Care Provider Medication Changes From Visit Cipro x 3 days Oxycodone PRN breakthrough pain x 5 pills Admission HPI Per Admitting Provider Patient is a 38-year-old female with past medical history of bypass surgery, DM, hypertension. She stated she no longer takes anything for diabetes as it has gone away after her surgery. She also stopped taking lisinopril because her blood pressure has been stable. She just takes lisinopril as needed if her blood pressure is high. she was in the ER about a week ago found to have a 5 mm left ureteral stone; she was sent home with pain medication and Flomax. She presents today after worsening flank pain, vomiting x 2, and fever that started last night. She also had intermittent dizziness, lightheadedness, and a headache last night that have all resolved. She states the pain is on her left flank, side, and abdomen. She has been urinating without difficulty, denies hematuria. Patient denies dyspnea, dyspnea on exertion, chest pain, dysuria, decreased urine output. Handoff from ER provider stated that urology to evaluate patient later today with possible stent placement in OR today. Patient's mother and sister updated at bedside. Discharge Exam General: No acute distress, nondiaphoretic, well-developed, well-nourished. Skin: The skin was without rashes, erythema, edema, or bruising. Cardiac: Regular rate and rhythm without murmurs gallops or rubs. Pulm: Clear to auscultation bilaterally without wheezes, rales or rhonchi. No retractions or accessory muscle use. Abdominal: Positive bowel sounds x 4. Soft, nontender, without masses or organomegaly. No guarding or rebound tenderness. Neuro: A&O x3. No focal neurological deficits. Discharge Plan Discharge Items Patient Disposition: Home - Self-Care Reason For Visit: K-STONE Discharge Diagnosis: Left-sided kidney stone with mild hydronephrosis, s/p cystoscopy, left ureteroscopic, stone extraction, laser lithotripsy and left stent placement Condition on Discharge: Fair Activity: Per Instructions section Non-emergency contact: Primary Care Provider and Urologist Call non-emergency contact if: you have any medication questions and your symptoms worsen Follow-up/Referrals: Triston Joe MD [Physician] - 07/17/24 11:30 am Mary Larios MD [Primary Care Provider] - 07/20/24 11:00 am (Appointment will be with Dalia Yang PA-C) Diet: Regular Addtl Attending Provider Instructions: Dedra, You were admitted to the hospital because of a left kidney stone with mild hydronephrosis (swelling of your kidney). You were evaluated by the urology who performed surgical intervention including cystoscopy, left ureteroscopy, stone extraction, laser lithotripsy, and left stent placement. He will follow-up with urology in their outpatient office. Your prescriptions have been sent to your pharmacy. Upon discharge from the hospital: * Take Ciprofloxacin (oral antibiotic) 250 mg twice daily x 3 days. This class of antibiotics increases your risk of tendinitis/tendon rupture, so it is important to avoid excessive exercise or activity while taking this. * Take Tylenol as your first-line pain control. This is [id number]-[id number] (OTC), so no prescription is required. * Take oxycodone 5 mg every 6 hours NEEDED for breakthrough pain. This is a narcotic pain medication. Do not drive or operate heavy machinery when taking this. * Follow-up with urology outpatient on 07/17/2024. * Follow-up with your PCP in 1-2 weeks. While you have a ureteral stent in place: Some discomfort is normal. Certain movements may trigger pain or a feeling that you need to urinate. You may also feel mild soreness or pressure before or during urination. These symptoms should go away a few days after the stent is removed. Your urine may be slightly pink or red. This is due to bleeding caused by minor irritation from the stent. This may happen on and off while you have the stent, it is not harmful and is to be expected. Medication to help minimize discomfort or bladder spasms, or to prevent infection may be prescribed. Take this as directed. Drink plenty of fluids to help flush out your urinary tract. If you go home with a catheter, wash with soapy water and a fresh washcloth twice daily. We recommend mild bar soap such as Dial or Dove. When to call [facility] at [phone]: Your urine contains heavy blood clots You are constantly leaking urine Fever of 101F or higher, chills, nausea, or vomiting Your pain is not relieved with medication The end of the stent comes out of your urethra Please return to the hospital if you experience any of the following: Repeated vomiting or unable to keep down fluids, solid red or brown urine, unable to urinate for 8 hours with increasing bladder pressure, weakness, dizziness, passing out, confusion, chest pain, or difficulty breathing. It was a pleasure taking care of you while you were in the hospital, Meena Carreon PA-C Pending Studies at Discharge: No Stand-Alone Forms: My [facility], Work/School Release, Smoking C essation Medications and DC Order Prescriptions: New ciprofloxacin HCl 250 mg tablet 250 mg PO BID Qty: 6 0RF Continued lisinopril 10 mg tablet 10 mg PO DAILY vitamin A 2,400 mcg capsule 2,400 mcg PO DAILY multivitamin [Multiple Vitamins] Tablet 1 tab PO DAILY cholecalciferol (vitamin D3) 25 mcg (1,000 unit) capsule 25 mcg PO DAILY calcium carbonate [Calcium 500] 500 mg calcium (1,250 mg) tablet,chewable 500 mg PO DAILY biotin 1,000 mcg tablet,chewable 1,000 mcg PO DAILY ondansetron 4 mg tablet,disintegrating 4 - 8 mg PO Q6H PRN (Reason: nausea and vomiting) Qty: 14 0RF tamsulosin [Flomax] 0.4 mg capsule 0.4 mg PO DAILY Qty: 10 0RF oxycodone 5 mg tablet 5 mg PO Q6 PRN (Reason: pain) Qty: 5 0RF Discharge Orders: Discharge Order (Routine); Ordered 07/14/24 Ordered By: Meena Carreon Admission Data Admit Date/Time: 07/13/24 11:18 Attending Provider: Faustino Garcia Admit Provider: Delroy Humphreys Primary Care Provider: Mary Larios Other Providers: Rasta Calabrese; Delroy Humphreys Other Interventions: Discharge Summary Assessment (RN) Last Done: 07/14/24 13:51 Hospital Stay Data Consultations 07/13/24 10:59 Consult Urology Stat 07/13/24 11:03 ED Decision to Admit Stat 07/13/24 11:18 Consult Urology Routine Procedures Performed Operation Date: 07/14/24 10:50 Actual Procedures p Cystoscopy, Left Ureteroscopy, Stone Extraction, Laser Lithotripsy and (Left) - Triston Joe MD s Left Stent Placement(Left) - Triston Joe MD Diagnostic Imagining Performed 07/14/24 FL retrograde includes kub Routine Pending Results Patient Have Any Pending Studies at Discharge: No Discharge Instructions Given to Patient (Per Discharging Provider) Dedra, You were admitted to the hospital because of a left kidney stone with mild hydronephrosis (swelling of your kidney). You were evaluated by the urology who performed surgical intervention including cystoscopy, left ureteroscopy, stone extraction, laser lithotripsy, and left stent placement. He will follow-up with urology in their outpatient office. Your prescriptions have been sent to your pharmacy. Upon discharge from the hospital: * Take Ciprofloxacin (oral antibiotic) 250 mg twice daily x 3 days. This class of antibiotics increases your risk of tendinitis/tendon rupture, so it is important to avoid excessive exercise or activity while taking this. * Take Tylenol as your first-line pain control. This is bqiz-dls-tvauxwy (OTC), so no prescription is required. * Take oxycodone 5 mg every 6 hours NEEDED for breakthrough pain. This is a narcotic pain medication. Do not drive or operate heavy machinery when taking this. * Follow-up with urology outpatient on 07/17/2024. * Follow-up with your PCP in 1-2 weeks. While you have a ureteral stent in place: Some discomfort is normal. Certain movements may trigger pain or a feeling that you need to urinate. You may also feel mild soreness or pressure before or during urination. These symptoms should go away a few days after the stent is removed. Your urine may be slightly pink or red. This is due to bleeding caused by minor irritation from the stent. This may happen on and off while you have the stent, it is not harmful and is to be expected. Medication to help minimize discomfort or bladder spasms, or to prevent infec tion may be prescribed. Take this as directed. Drink plenty of fluids to help flush out your urinary tract. If you go home with a catheter, wash with soapy water and a fresh washcloth twice daily. We recommend mild bar soap such as Dial or Dove. When to call [facility] at [phone]: Your urine contains heavy blood clots You are constantly leaking urine Fever of 101F or higher, chills, nausea, or vomiting Your pain is not relieved with medication The end of the stent comes out of your urethra Please return to the hospital if you experience any of the following: Repeated vomiting or unable to keep down fluids, solid red or brown urine, unable to urinate for 8 hours with increasing bladder pressure, weakness, dizziness, passing out, confusion, chest pain, or difficulty breathing. It was a pleasure taking care of you while you were in the hospital, Meena Carreon PA-C Total Time Total Time Spent Total Time Spent (In Minutes): Greater than 30 minutes spent completing this discharge process including direct patient care, medication reconciliation, documentation, review of labs and images, and coordination of care. Coding Level of Care Code 96444 INP/OBS DISCH >30 MIN Diagnoses Kidney stone N20.0 Hypertension I10
[2024-07-20 01:37] LABS: Component 2 DNR; Source LEFT KIDNEY STONE
== END 2024-07-14 14:35 | disposition home or self-care (01) | DRG 660 ==
LOC: ED 09:21 → EDINP 11:18 → SUATTDRO 11:18 → 3W 14:04

== ENCOUNTER 2025-01-17 11:30 | Observation (INO) ==
[2025-01-17] MEDS ORDERED: CALCIUM CARBONATE 500 MG CHEWABLE TAB PO PRN (13:08)
--- NOTE | 2025-01-17 14:31 | History & Physical Report ---
Date of Service January 17, 2025 Assessment & Plan (1) IUFD at 20 weeks or more of gestation: (2) Encounter for induction of labor: Plan Discussed with couple and family her diagnosis, poss etiologies and options to manage. G&M support given. Patient and partner may want to consider ANORA testing. They did have neg cfDNA but would want to pursue if more info can be gained. Aware of autopsy and partial autopsy as options. Rec cbc with diff now and kb. She can plan other lab testing after hormone resolves, ie. APS testing. She is aware that at times reasons for stillbirth are not found. She verbalized understanding. She is aware of pain mgmt options for her induction. She is to let us know of anything that she needs or any questions that she or family have. Will allow lunch as we are just getting process started. Admission and Anticipated Discharge Date Admission Date: January 17, 2025 History of Present Illness Chief Complaint: iufd Primary Care Provider: Mary Larios MD 39yo at 24w2d by dates with IUFD, likely 20-22 wks admitted to for planned induction. Patient has been having routine care in our office. Last seen in early december with normal anatomy u/s but incomplete due to no 4CH. Otherwise so far complicated by 1. AMA and 2. Obesity. 3. s/p gastric bypass. [place] in [place] and as expected was not feeling regular movement but went for a "for fun" u/s and no fhts noted. She was sent to the [facility] where official u/s done showing IUFD. Measurements on report were difficult but did have AC measuring 20w2d. She then drove back home overnight and was made aware previously and again by me options for surgical mgmt vs. induction of labor and here for latter. Her family is known to me from prior interactions due to health care needs. She is surrounded currently by her partner(fob), mom and sister. She denies any history of bleeding, recent infection illness. PNC as noted above. PNL rhpos, ri, neg cfDNA OBH: g1 GYNH: nl paps, no stds Allergies Allergy/AdvReac Type Severity Reaction Status Date / Time erythromycin base Allergy Severe Unknown Verified 01/17/25 12:00 clindamycin Allergy Unknown HIVES, RASH Verified 01/17/25 12:00 Macrolide Antibiotics Allergy Unknown ALLERGY: Verified 01/17/25 12:00 "MYCINS" tetracycline Allergy Unknown Unknown Verified 01/17/25 12:00 morphine AdvReac Intermediate Rash Verified 01/17/25 13:17 vancomycin AdvReac Mild FACE & Verified 01/17/25 12:00 SCALP RED & ITCHING Home Medications Medication Instructions Recorded Confirmed Type Bariatric Vitamins 1 tab PO UD 11/13/24 01/17/25 History cholecalciferol (vitamin D3) 50 50 mcg PO HS 11/13/24 01/17/25 History mcg (2,000 unit) tablet (Vitamin D3) Patient History Medical History (Updated 01/17/25 @ 14:39 by Sadie Solis MD, FACOG) Varicella Pseudotumor cerebri (03/23/08) 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) Hidradenitis suppurativa (01/24/22) Hydronephrosis related to kidney stone at time Renal colic Calculus of proximal left ureter Kidney stone Morbid (severe) obesity due to excess calories s/p weight loss surgery 11/17/23 Hypertension resolved with weight loss Diabetes no longer; corrected with weight loss Surgical History S/P foot surgery ankle S/P knee surgery S/P unilateral salpingo-oophorectomy right large ovarian cyst S/P surgical removal of pilonidal cyst Bariatric surgery status CLAUDIA S November 2023 single anastomosis duodenoileal bypass with sleeve gastrectomy H/O laparoscopy S/P tonsillectomy as a child H/O wisdom tooth extraction as a teenager Family History Mother Uterine cancer History of IUFD Hypertension Father Hypertension Diabetes Denies family history of Ovarian cancer Breast cancer Colorectal cancer Social History (Updated 01/17/25 @ 11:58 by Mary Ellen Man, RN) Smoking Status: Never smoker Second Hand Exposure: No; Do You Dip or Chew Tobacco: No; Hx Alcohol Use: No Hx Substance Use: No Preferred Language: Kazakh Communication Ability: Effective Visual Impairment: No Limitations Hearing Ability: Normal Client Administrator Required: No Beliefs That Will Affect Care: None marital status: marital status details: Ronald Tam (37) [phone] Current Living Situation: Spouse and Family Current Living Situation Comment: lives with spouse, 3 foster children, 2 dogs current occupational status: employed 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 Other Information That Helps Us Care for You: No Feels Safe at Home: Yes Safety Concerns: Feels Safe At This Time Assistive Devices: None Review of Systems as per Subjective / HPI Physical Exam Constitutional: WD/WN, vitals as above Respiratory: normal respiratory effort, lungs clear to auscultation Cardiovascular: Rate/Rhythm: regular rate and regular rhythm Gastrointestinal (Abdomen): Percussion/Palpation: abdomen soft (obese) Neurologic: grossly normal Psychiatric: A+Ox3, euthymic affect Genitourinary: normal external appearance Manual OB Exam: + cervical dilation (closed), + cervical effacement (long) and + station high OB Exam Monitor Tracing: + external uterine monitor used (no ctx) Informed consent obtained to proceed with misoprostil induction, after findings of demise verified on u/s report from [facility] 400mcg placed vaginally. Results & Data Vital Signs (Past 12 Hours) Vital Signs Temp Pulse Resp BP 01/17/25 11:48 98.8 F 18 01/17/25 11:44 72 132/79 Diagnostic Findings US report from yesterday reviewed. 20+wks by AC and no fhts, no movement. Hard copy to be scanned in. Coding Level of Care Code None Diagnoses IUFD at 20 weeks or more of gestation O36.4XX0 Encounter for induction of labor Z34.90
[2025-01-17 14:41] LABS: Hematocrit (blood only) 36.0 % (37.0-47.0); Hemoglobin 12.2 g/dl (12.0-16.0); Immature Granulocytes # (auto) 0.03 K/uL (0.01-0.20); Immature Granulocytes % (auto) 0.4 %; Mean Corpuscular Hemoglobin 32.6 pg (25.0-34.0); Mean Corpuscular Volume 96.3 fL (80.0-100.0); Platelet Count 183 K/uL (130-400); RDW Standard Deviation 46.3 fL (36.4-46.3); Red Blood Count 3.74 M/uL (4.20-5.40); White Blood Count 8.47 K/ul (4.8-10.8)
--- NOTE | 2025-01-17 17:48 | Labor Progress Brief Note ---
Date of Service January 17, 2025 Subjective doing ok, some cramps. no pain. no bleeding. pt notes fob has retinitis pigmentosa and wondering if that is contributor to stillbirth. also reminds me that was sa without control x 7yrs, recent wt loss after bariatric surgery (150#) resulted in more regular cycles and then this surprise . Assessment & Plan (1) IUFD at 20 weeks or more of gestation: (2) Encounter for induction of labor: Plan misoprostil placed. pt with ?s, answered to best of my ability. made aware of my conversation with genetics about anora testing and what it would offer and she desires to proceed(essentially microarray). discussed mfm consult can be offered due to iufd and fob genetics. discussed future preg planning. Admission and Anticipated Discharge Date Admission Date: January 17, 2025 Physical Exam Constitutional: WD/WN, vitals as above Genitourinary: Manual OB Exam: + cervical dilation (closed, developing BERT) OB Exam Monitor Tracing: + external uterine monitor used (no ctx) cytotec 400mcg placed posterior fornix. Results & Data Vital Signs (Past 12 Hours) Vital Signs Temp Pulse Resp BP 01/17/25 16:29 98.8 F 73 20 138/71 01/17/25 11:48 98.8 F 18 01/17/25 11:44 72 132/79 Coding Level of Care Code None Diagnoses IUFD at 20 weeks or more of gestation O36.4XX0 Encounter for induction of labor Z34.90
--- NOTE | 2025-01-17 20:51 | Labor Progress Brief Note ---
Date of Service January 17, 2025 Subjective pt feels cramping that is more constant. no bleeding, no leaking. Assessment & Plan (1) IUFD at 20 weeks or more of gestation: (2) Encounter for induction of labor: Plan exam changes noted and shared with pt and family. if she prefers to have epidural at time of delivery suggest she get soon as i suspect delivery could be likely in coming hours. she denies questions. Admission and Anticipated Discharge Date Admission Date: January 17, 2025 Physical Exam Constitutional: WD/WN, vitals as above Genitourinary: Manual OB Exam: + cervical dilation (poss small part at os. +BERT. ) OB Exam Monitor Tracing: + external uterine monitor used (no ctx pattern noted. ) misprostil placed. Results & Data Vital Signs (Past 12 Hours) Vital Signs Temp Pulse Resp BP 01/17/25 19:26 75 142/84 H 01/17/25 19:25 18 01/17/25 19:25 99.0 F 18 01/17/25 16:29 98.8 F 73 20 138/71 01/17/25 11:48 98.8 F 01/17/25 11:44 72 132/79 Coding Level of Care Code None Diagnoses IUFD at 20 weeks or more of gestation O36.4XX0 Encounter for induction of labor Z34.90
[2025-01-17] MEDS ORDERED: NALOXONE HCL 0.4 MG/1 ML VIAL/CARP IV PRN (21:34)
[2025-01-17] MEDS ORDERED: ROPIVACAINE 0.5% PF 5 MG/ML 20 ML VIAL EPI PRN (21:34)
[2025-01-17] MEDS ORDERED: ONDANSETRON INJ 2 MG/ML 2 ML VIAL IV PRN (21:34)
[2025-01-17] MEDS ORDERED: LIDOCAINE 2% MPF LOCAL 5 ML VIAL EPI PRN (21:34)
[2025-01-17] MEDS ORDERED: NALBUPHINE HCL INJ 10 MG/ML AMP IV PRN (21:34)
[2025-01-17] MEDS ORDERED: diphenhydrAMINE 50 MG/ML VIAL IV PRN (21:34)
[2025-01-17] MEDS ORDERED: SODIUM CHLORIDE 0.9% PF INJ 10 ML VIAL EPI PRN (21:34)
[2025-01-17] MEDS ORDERED: BUPIVACAINE 0.25% PF 30 ML VIAL EPI PRN (21:34)
[2025-01-17] MEDS ORDERED: NALOXONE HCL 1 MG in SODIUM CHLORIDE 0.9% 1,000 ML IV PRN (21:34)
--- NOTE | 2025-01-17 21:34 | Anesthesiology Consultation ---
Date of Service January 17, 2025 Assessment & Plan (1) Encounter for pre-operative examination: Chart Review Chart Review: Patient NOT seen in Pre Admission Testing and Acceptable Risk for Labor Epidural Consults Requested none History Height/Weight Height: 5 ft 10 in Weight: 117.027 kg Allergies Allergy/AdvReac Type Severity Reaction Status Date / Time erythromycin base Allergy Severe Unknown Verified 01/17/25 12:00 clindamycin Allergy Unknown HIVES, RASH Verified 01/17/25 12:00 Macrolide Antibiotics Allergy Unknown ALLERGY: Verified 01/17/25 12:00 "MYCINS" tetracycline Allergy Unknown Unknown Verified 01/17/25 12:00 morphine AdvReac Intermediate Rash Verified 01/17/25 13:17 vancomycin AdvReac Mild FACE & Verified 01/17/25 12:00 SCALP RED & ITCHING Medications Home Medications Medication Instructions Recorded Confirmed Last Taken Bariatric Vitamins 1 tab PO UD 11/13/24 01/17/25 01/17/25 cholecalciferol (vitamin D3) 50 50 mcg PO HS 11/13/24 01/17/25 01/17/25 mcg (2,000 unit) tablet (Vitamin D3) Active Medications Generic Name Dose Route Start Last Admin Trade Name Freq PRN Reason Stop Dose Admin Misoprostol 400 mcg 01/17/25 13:15 01/17/25 20:43 Misoprostol 200 Mcg Tab PV 02/16/25 13:14 400 mcg Q3H DEZ Administration Past Medical History Medical History Varicella Pseudotumor cerebri (03/23/08) 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) Hidradenitis suppurativa (01/24/22) Hydronephrosis related to kidney stone at time Renal colic Calculus of proximal left ureter Kidney stone Morbid (severe) obesity due to excess calories s/p weight loss surgery 11/17/23 Hypertension resolved with weight loss Diabetes no longer; corrected with weight loss Past Family History Family History Mother Uterine cancer History of IUFD Hypertension Father Hypertension Diabetes Denies family history of Ovarian cancer Breast cancer Colorectal cancer Past Surgical History Surgical History S/P foot surgery ankle S/P knee surgery S/P unilateral salpingo-oophorectomy right large ovarian cyst S/P surgical removal of pilonidal cyst Bariatric surgery status CLAUDIA S November 2023 single anastomosis duodenoileal bypass with sleeve gastrectomy H/O laparoscopy S/P tonsillectomy as a child H/O wisdom tooth extraction as a teenager Social History Smoking Status: Never smoker Do You Dip or Chew Tobacco: No Hx Alcohol Use: No Hx Substance Use: No Physical Exam Vital Signs Last Vital Signs Temp 99.0 F 01/17/25 19:25 Pulse 76 01/17/25 21:29 Resp 18 01/17/25 19:25 BP 142/84 H 01/17/25 19:26 Pulse Ox 99 01/17/25 21:29 Testing Laboratory Results 01/17/25 14:27 Blood Type A Positive 01/17/25 14:27 Blood Type Cancelled 01/17/25 14:27 Antibody Screen Cancelled 01/17/25 14:27 Antibody Screen NEGATIVE 01/17/25 14:27
[2025-01-17] MEDS: BUPIVACAINE 0.25% PF 30 ML VIAL EPI STA (22:06)
[2025-01-17] MEDS: SODIUM CHLORIDE 0.9% PF INJ 10 ML VIAL EPI STA (22:06)
[2025-01-17] MEDS: fentANYL 2 MCG/ML BUPIVacaine 0.125%-NSS 100ML BAG EPI PRN (22:07)
[2025-01-18] MEDS: LACTATED RINGER'S 1,000 ML IV SCH (01:53)
--- NOTE | 2025-01-18 04:17 | Labor Progress Brief Note ---
Date of Service January 18, 2025 Subjective pt comfortable with epidural. feels some pressure Assessment & Plan (1) IUFD at 20 weeks or more of gestation: (2) Encounter for induction of labor: Plan cont current care. tylenol prn fever--she is covered in multiple blankets as poss contributor as well. with membranes intact, hopefully will be a delivery en caul. pt did bear down with some descent of tissue in vagina and perhaps will plan for that again at next exam. Admission and Anticipated Discharge Date Admission Date: January 17, 2025 Physical Exam Constitutional: WD/WN, vitals as above Genitourinary: Manual OB Exam: + cervical dilation (sac and some contents in vagina and intact. misoprostil 400mcg placed. ) OB Exam Monitor Tracing: + external uterine monitor used (no pattern noted. ) Results & Data Vital Signs (Past 12 Hours) Vital Signs Temp Pulse Resp BP Pulse Ox 01/18/25 04:13 89 94 01/18/25 04:12 18 01/18/25 04:12 100.6 F H 18 01/18/25 04:09 91 H 96 01/18/25 04:04 80 96 01/18/25 04:03 74 94 01/18/25 04:00 75 115/57 L 01/18/25 03:59 87 96 01/18/25 03:54 96 01/18/25 03:54 95 H 01/18/25 03:54 84 94 01/18/25 03:49 87 95 01/18/25 03:45 76 101/54 L 01/18/25 03:44 77 94 01/18/25 03:39 81 93 01/18/25 03:34 81 93 01/18/25 03:31 76 94 01/18/25 03:30 79 101/53 L 01/18/25 03:29 79 93 01/18/25 03:24 75 94 01/18/25 03:19 74 94 01/18/25 03:15 74 103/52 L 94 01/18/25 03:14 72 95 01/18/25 03:09 75 94 01/18/25 03:04 73 94 01/18/25 03:00 67 102/52 L 01/18/25 02:59 71 94 01/18/25 02:54 75 94 01/18/25 02:49 82 94 01/18/25 02:46 82 94 01/18/25 02:45 80 98/56 L 01/18/25 02:44 87 94 01/18/25 02:39 79 94 01/18/25 02:34 77 94 01/18/25 02:32 72 94 01/18/25 02:30 80 89/54 L 01/18/25 02:29 76 94 01/18/25 02:24 74 93 01/18/25 02:22 71 94 01/18/25 02:19 76 94 01/18/25 02:15 80 99/55 L 01/18/25 02:14 77 94 01/18/25 02:09 77 93 01/18/25 02:04 74 94 01/18/25 02:00 80 99/54 L 01/18/25 01:59 85 93 01/18/25 01:54 83 94 01/18/25 01:52 85 94 01/18/25 01:49 82 95 01/18/25 01:45 77 99/54 L 01/18/25 01:44 78 93 01/18/25 01:39 80 93 01/18/25 01:34 77 93 01/18/25 01:30 75 99/55 L 01/18/25 01:29 76 93 01/18/25 01:24 77 93 01/18/25 01:19 76 93 01/18/25 01:15 74 104/53 L 01/18/25 01:14 77 93 01/18/25 01:13 77 94 01/18/25 01:09 79 93 01/18/25 01:05 76 94 01/18/25 01:04 81 92 01/18/25 01:00 74 104/55 L 01/18/25 00:59 84 93 01/18/25 00:58 74 94 01/18/25 00:54 77 93 01/18/25 00:49 73 93 01/18/25 00:45 72 104/51 L 01/18/25 00:44 73 94 01/18/25 00:41 68 94 01/18/25 00:39 67 95 01/18/25 00:34 70 94 01/18/25 00:33 69 94 01/18/25 00:30 68 111/57 L 01/18/25 00:29 64 96 01/18/25 00:24 66 96 01/18/25 00:19 67 97 01/18/25 00:15 64 110/59 L 01/18/25 00:14 64 96 01/18/25 00:09 66 96 01/18/25 00:07 99.7 F H 18 01/18/25 00:04 78 99 01/17/25 23:59 69 100 01/17/25 23:54 67 100 01/17/25 23:49 75 100 01/17/25 23:44 74 99 01/17/25 23:39 63 99 01/17/25 23:34 72 100 01/17/25 23:30 67 111/57 L 01/17/25 23:29 65 98 01/17/25 23:24 63 98 01/17/25 23:19 65 99 01/17/25 23:16 73 108/62 01/17/25 23:15 78 94 01/17/25 23:14 74 99 01/17/25 23:09 70 98 01/17/25 23:04 69 99 01/17/25 23:00 68 111/55 L 01/17/25 22:59 66 97 01/17/25 22:54 69 97 01/17/25 22:49 70 97 01/17/25 22:45 67 112/53 L 01/17/25 22:44 71 96 01/17/25 22:39 74 97 01/17/25 22:34 70 96 01/17/25 22:31 68 109/56 L 01/17/25 22:29 67 97 01/17/25 22:25 18 01/17/25 22:25 98.8 F 18 01/17/25 22:24 73 98 01/17/25 22:19 73 97 01/17/25 22:14 73 110/58 L 98 01/17/25 22:12 82 114/58 L 01/17/25 22:10 80 111/58 L 01/17/25 22:09 83 96 01/17/25 22:07 82 119/56 L 01/17/25 22:05 82 94 01/17/25 22:04 83 95 01/17/25 21:59 69 97 01/17/25 21:54 58 L 98 01/17/25 21:49 77 98 01/17/25 21:45 18 01/17/25 21:45 18 01/17/25 21:44 88 98 01/17/25 21:41 82 93 01/17/25 21:39 76 98 01/17/25 21:34 61 97 01/17/25 21:29 76 99 01/17/25 19:26 75 142/84 H 01/17/25 19:25 18 01/17/25 19:25 99.0 F 18 01/17/25 16:29 98.8 F 73 20 138/71 Coding Level of Care Code None Diagnoses IUFD at 20 weeks or more of gestation O36.4XX0 Encounter for induction of labor Z34.90
[2025-01-18] MEDS: ACETAMINOPHEN 325 MG TAB PO PRN (04:31)
[2025-01-18] MEDS: BUPIVACAINE 0.25% PF 30 ML VIAL ONE (05:30)
[2025-01-18] MEDS: fentANYL 2 MCG/ML BUPIVacaine 0.125%-NSS 100ML BAG ONE (05:30)
[2025-01-18] MEDS: LIDOCAINE 2%/EPINEPHRINE 1:200,000 20 ML PF EPI STA (05:31)
[2025-01-18] MEDS: LIDOCAINE 2%/EPINEPHRINE 1:200,000 20 ML PF ONE (05:31)
[2025-01-18] MEDS: SODIUM CHLORIDE 0.9% PF INJ 10 ML VIAL ONE (05:31)
[2025-01-18] MEDS: OXYTOCIN 30 UNITS/500ML NSS IV ONE (07:05)
--- NOTE | 2025-01-18 07:31 | Delivery Summary ---
Vaginal Delivery Summary Date of Service January 18, 2025 Vaginal Delivery Summary Sac seen extruding from vagina. Patient positioned and began pushing. Delivered en caul. Patient requested to see baby in sac and then sac opened and umbilical cord cut. handed to patient. Placenta intact. Vaginal tissues inspected and no lacerations or evidence of bleeding. Hemostasis adequate and dilute pitocin infusing. Examined baby Oksana with couple and patients mother. Loose nuchal cord noted. Demise appears >7days and cranium indented likely due to decomposition and trauma from delivery. Otherwise no gross abnormalities appreciated. Tissue obtained from placenta and portion of cord to be sent for anora testing. Placenta to pathology. Mother stable. [facility] V[facility] Delivery Charge Delivery Type Details:
--- NOTE | 2025-01-18 08:28 | Communication Note ---
Date of Service: January 18, 2025 visited with pt and family in room. nursing informs me pt having minimal bleeding, no pain. temperature improved. pt holding baby Oksana. Support given. Plan 2wk check up in office. Answered ?s. They ask specifically about the nuchal cord and if that was cause of demise and explained nuchal cords can be common and not cause issue so difficult to say and we are cautioned not to let that be an explanation in a circumstance where etiology might really be unknown. They verbalized understanding. Mother of pt even explains that for pt , she had triple nuchal.
--- NOTE | 2025-01-18 08:58 | Anesthesia Procedure Note ---
Date of Service January 18, 2025 Anesthesia Post Epidural Note Vital Signs Vital Signs: Temp Pulse Resp BP Pulse Ox 38.1 C H 74 18 117/68 94 01/18/25 04:12 01/18/25 08:45 01/18/25 04:12 01/18/25 08:45 01/18/25 07:13 Notes Mental Status: alert / awake / arousable and participated in evaluation Nausea / Vomiting: adequately controlled Pain: adequately controlled Airway Patency, RR, SpO2: stable & adequate BP & HR: stable & adequate Hydration State: stable & adequate Neuraxial Anesthesia: was administered and sensory block is resolving Anesthetic Complications: no major complications apparent and Pt Satisfied with anesthetic care Epidural: Removed without complications and With tip intact
[2025-01-18 09:31] VITALS: PULSE 74
[2025-01-18 11:24] VITALS: BP 118/81
[2025-01-18 11:53] VITALS: RESP 16; TEMP 99; O2SAT 100
[2025-01-18] MEDS ORDERED: IBUPROFEN 600 MG TAB PO PRN (11:56)
[2025-01-18] MEDS ORDERED: OXYTOCIN 30 UNITS/NSS 30 UNITS/500 ML BAG IV PRN (11:56)
[2025-01-18] MEDS: METHYLENE BLUE 0.5% 10 ML VIAL ONE (14:29)
== END 2025-01-18 16:24 | disposition home or self-care (01) | DRG 807 ==
LOC: 4S1 11:30 → INTOOBSV 11:30